=== PATIENT | male | born 1995 | race Caucasian/White ===

== ENCOUNTER 2022-07-11 09:29 | Observation (INO) ==
--- NOTE | 2022-07-08 11:37 | Anesthesiology Consultation ---
Date of Service July 08, 2022 Assessment & Plan (1) Encounter for pre-operative examination: - COVID screening: Per chief growth officer on 07/08/2022: Travel screen negative, no known COVID-19 positive contacts or current COVID-19 related symptoms in past 2 weeks. To surgeon's discretion if preop COVID testing is needed. Chart Review Chart Review: Acceptable Risk for Surgery and Patient NOT seen in Pre Admission Testing History Surgery Operation Date: 07/11/22 10:20 Proposed Procedures p Dismembered Laparoscopic Robotic Assisted Pyeloplasty - Jaspreet Waters MD s Cystoscopy, Right Retrograde Pyelogra, Right Ureteral Stent Placement - Jaspreet Waters MD Height/Weight Height: 5 ft 11 in Weight: 97.522 kg Allergies Allergy/AdvReac Type Severity Reaction Status Date / Time No Known Allergies Allergy Verified 07/08/22 10:00 Medications Home Medications Medication Instructions Recorded Confirmed Last Taken tamsulosin 0.4 mg capsule (Flomax) 0.4 mg PO HS 07/08/22 Unknown Past Medical History Medical History (Updated 07/08/22 @ 11:36 by Elisha Estrella PA-C) History of MRSA infection 2014, axilla and neck UPJ obstruction, congenital Past Family History Family History Other No family history of adverse response to anesthesia Past Surgical History Surgical History H/O colonoscopy (~2013) H/O right knee surgery (~2015) Meniscus repair History of esophagogastroduodenoscopy (EGD) History of wisdom tooth extraction (~2011) S/P surgical removal of pilonidal cyst (~2017) Social History Smoking Status: Never smoker Do You Dip or Chew Tobacco: No Hx Alcohol Use: Yes Alcohol type: beer and wine alcohol intake frequency: holidays/special occasions only Hx Substance Use: No substance use type: does not use Testing Other Testing Abdomen pelvis CT 03/22/22 1. No acute infectious or inflammatory findings are identified in the abdomen or pelvis. 2. There is bilateral hydronephrosis, right greater than left with large extrarenal pelvises. The ureters are normal in caliber with no obstructing stone or lesion identified. This likely represents bilateral UPJ type obstruction. Nonemergent follow-up with urology is recommended. 3. Normal appendix.
[~2022-07-11 09:29] MED LIST: LR 15ML/HR IV SCH; ceFAZolin 2000MG 2,000 MG/15 ML SYR IV SCH
[2022-07-11 10:18] LABS: Appearance Urine Cloudy (Clear); Bacteria Urine Automated Negative (Negative); Bilirubin Urine Negative (Negative); Blood Urine Negative (Negative); Color Urine Yellow; Glucose Urine UA Negative (Negative); Ketones Urine Negative (Negative); Leukocyte Esterase Urine Negative (Negative); Nitrite Urine Negative (Negative); Protein Urine Negative (Negative); RBC Urine Automated 0-4 /hpf (0-4); Specific Gravity Urine 1.022 (1.000-1.030); Urobilinogen Urine Negative (Negative)
[2022-07-11] MEDS ORDERED: PROPOFOL IV EMULSION 10 MG/ML 20 ML VIAL IV ONE (10:19)
[2022-07-11] MEDS ORDERED: ROCURONIUM BROMIDE 10 MG/ML 5 ML VIAL IV ONE ×11 (10:19→14:41)
[2022-07-11] MEDS ORDERED: fentaNYL citrate 100 MCG/2 ML VIAL ONE (10:19)
[2022-07-11] MEDS ORDERED: DEXAMETHASONE SOD INJ 4 MG/ML VIAL ONE (10:19)
[2022-07-11] MEDS ORDERED: LIDOCAINE 2% MPF LOCAL 5 ML VIAL INFIL ONE (10:19)
[2022-07-11] MEDS ORDERED: MIDAZOLAM HCL 1 MG/ML 2ML VIAL ONE (10:19)
[2022-07-11] MEDS ORDERED: ONDANSETRON INJ 2 MG/ML 2 ML VIAL ONE (10:20)
[2022-07-11] MEDS ORDERED: ePHEDrine sulfate 50 MG/ML AMP IV PRN (10:29)
[2022-07-11] MEDS ORDERED: ATROPINE SULFATE 0.1 MG/ML 10ML SYR IV PRN (10:29)
[2022-07-11] MEDS ORDERED: ONDANSETRON INJ 2 MG/ML 2 ML VIAL IV PRN ×2 (10:29→18:08)
[2022-07-11] MEDS ORDERED: HYDROmorphone INJ 2 MG/ML SYR/VIAL IV PRN (10:29)
[2022-07-11] MEDS ORDERED: PROMETHAZINE HCL 12.5 MG in SODIUM CHLORIDE 0.9% 50 ML IV PRN (10:29)
--- NOTE | 2022-07-11 11:35 | History & Physical Report ---
Date of Service July 11, 2022 Assessment & Plan (1) Flank pain: (2) UPJ obstruction, congenital: Plan We reviewed the plan for robot-assisted right pyeloplasty and right ureteral stent placement. We reviewed the risks and anticipated recovery. He expressed understanding and would like to proceed with surgery. History of Present Illness Primary Care Provider: Vesna Drew MD This is a 27-year-old male with history of right-sided hydronephrosis and right flank pain. MAG3 renogram demonstrated obstruction on the right side. We discussed performing a robotic pyeloplasty and he presents to the OR for the surgery. Allergies Allergy/AdvReac Type Severity Reaction Status Date / Time No Known Allergies Allergy Verified 07/11/22 09:49 Home Medications Medication Instructions Recorded Confirmed Type tamsulosin 0.4 mg capsule (Flomax) 0.4 mg PO HS 07/08/22 History Past Med/Surg History Medical History History of MRSA infection 2014, axilla and neck UPJ obstruction, congenital Surgical History H/O colonoscopy (~2013) H/O right knee surgery (~2015) Meniscus repair History of esophagogastroduodenoscopy (EGD) History of wisdom tooth extraction (~2011) S/P surgical removal of pilonidal cyst (~2017) Family History Other No family history of adverse response to anesthesia Social History (Updated 03/27/22 @ 14:06 by Caroline Snell RN) Smoking Status: Never smoker Second Hand Exposure: No; Do You Dip or Chew Tobacco: No; Tobacco Cessation Education Requested by Patient: No Hx Alcohol Use: Yes Alcohol type: beer and wine Alcohol Intake Frequency: 2-3 x/Week Hx Substance Use: No Preferred Language: Palauan Communication Ability: Effective Residential Sales Manager Required: No Beliefs That Will Affect Care: None marital status: Current Living Situation: Spouse current occupational status: student How many Children do You have: 0 Other Information That Helps Us Care for You: No Feels Safe at Home: Yes Safety Concerns: Feels Safe At This Time during the past year weight has: remained stable Assistive Devices: Glasses Review of Systems 14 point review of systems negative except for otherwise indicated. Physical Exam Constitutional: well developed and well nourished; no acute distress Eyes: + anicteric sclerae; pupils not irregular Respiratory: normal respiratory effort; no respiratory distress, does not use accessory muscles and no cough Cardiovascular: well perfused Gastrointestinal (Abdomen): Inspection/Auscultation: abdomen normal to inspection; abdomen not distended Musculoskeletal: Extremities: extremities normal to inspection Skin: normal turgor; no rashes and no lesions Neurologic: moves all extremities and awake Psychiatric: Orientation: alert and oriented x 3 Results & Data ([facility]) Vital Signs (Past 12 Hours) Vital Signs Temp Pulse Resp BP Pulse Ox O2 Del Method 07/11/22 09:52 37 C 110 H 20 159/93 H 98 Room Air
[2022-07-11] MEDS ORDERED: KETOROLAC 30 MG/ML VIAL ONE (11:42)
[2022-07-11] MEDS ORDERED: BUPIVACAINE 0.5 % 5 MG/1 ML MPF 30ML VIAL ONE (11:50)
[2022-07-11] MEDS ORDERED: ePHEDrine sulfate 50 MG/ML SYR ONE (12:53)
[2022-07-11] MEDS ORDERED: HYDROmorphone INJ 2 MG/ML SYR/VIAL ONE (14:09)
[2022-07-11] MEDS ORDERED: SURGICEL ABSORB HEMOSTAT 2IN X 14IN TOP ONE (15:24)
--- NOTE | 2022-07-11 16:36 | Operative Report ---
PG Post Operative Report Pre & Post Diagnosis Operation Date: 07/11/22 11:00 Pre-Op Diagnosis: Congential Ureteropelvic junction Obstruction Post-Op Diagnosis: Congential Ureteropelvic junction Obstruction I identified the patient and participated in the time-out.: Yes Procedure Operation Date: 07/11/22 11:00 Actual Procedures Dismembered Laparoscopic Robotic Assisted Pyeloplasty, Ureteral Stent Placement(Right) - Jaspreet Waters MD Surgeon Jaspreet Waters MD Information Systems Security Developer Tori LOUISE Estimated Blood Loss 25 Findings See Below Crossing vessel appreciated to the lower pole of the right kidney. Ureter was dissected free from underneath, divided and spatulated and reanastomosed to the renal pelvis. Right ureteral stent placed. Specimens None Drains 6 [place]an by 26 cm double-J ureteral stent in the right ureter, Schilling catheter per urethra, #10 MARQUITA drain in the right upper quadrant. Anesthesia Type General Complications none Disposition Accompanied Patient To Recovery: Yes Disposition: Recovery Room Indications This is a 27-year-old male who has previously been evaluated by urology for flank pain, right-sided hydronephrosis and suspicion for right UPJ obstruction. Nuclear medicine study indicated there was obstruction and he presents to the OR today for right-sided pyeloplasty. Description of Procedure The patient was identified in the preoperative holding area and informed consent was confirmed. He was marked on the right side. He was then brought to the operating room where general anesthesia was initiated. He was placed on the operating table in a flank position with the right flank elevated. All pressure points were carefully padded, and he was secured to the table using tape. His abdomen was prepped and draped in the usual sterile fashion a timeout was then performed. Robotic port sites were marked in a line approximately 7 cm right of midline. The uppermost of these ports was approximately 2 fingerbreadths below the costal margin, and the lower ports were 7 cm apart. An incision was made over the right upper quadrant port site. Using a Veress needle, access to the peritoneum was obtained, confirming good position with a drop test, negative aspiration and low initial insufflation pressure. The camera was inserted and confirmed that there was no injury to intra-abdominal contents. There was some adhesions of the upper colon to the liver and in the right lower quadrant to the abdominal wall. The remaining 8 mm robotic ports were placed under direct visualization and a 12 mm computer lab assistant port was placed just cephalad of the umbilicus. The robot was then docked. The ascending colon was reflected along the white line of Toldt and the adhesions near the liver were divided sharply. This allowed exposure to the kidney and the likely location of the hilum. The duodenum was medial and not encountered. The retroperitoneum was entered and the ureter was identified. Holding the ureter anterior leaving the gonadal vessels in place, dissection was carried upward toward the kidney. At the lower pole I encountered a crossing artery and vein, likely the source of his UPJ obstruction. The ureter and renal pelvis tissue were dissected free to gain mobility. Once there were sufficiently mobile, a stay suture was attached to the proximal ureter. The ureter was then divided using Mullins scissors and spatulated laterally. Before the ureter was completely detached from the renal pelvis, two of the anastomotic 4-0 Vicryl sutures were placed on the ureter side. The ureter and the renal pelvis were then detached. The renal pelvis was fed underneath the crossing vessels and then brought back over the top. The renal pelvis was spatulated to give a wide opening The ureter was then reanastomosed to the renal pelvis using interrupted 4-0 Vicryl sutures. Before the anastomosis was complete, a 6 Zimbabwean by 26 cm d ouble-J ureteral stent was then fed antegrade over a 0.038 inch zip wire, through the computer lab assistant port, down the ureter until it was at the level of the bladder. The wire was then removed and there was good curl at the level of the kidney. The proximal curl was fed into the renal pelvis and the anastomosis was then completed. Final inspection confirmed excellent hemostasis. Surgicel was applied to the hilar area and the resection bed under the ureter. #10 MARQUITA drain was fed through the top robotic port with the base near the anastomotic site. All instruments were removed and the robot was de-docked. 12 mm port was closed using 0 Vicryl interrupted suture in the fascia. The drain was secured to the skin using 4-0 nylon suture as a drain stitch. The incisions were then anesthetized using half percent Marcaine and then closed using 4-0 Monocryl suture followed by layer of Dermabond. An x-ray was performed at the conclusion of the case to confirm good position of the stent. At this point the patient was awakened from general anesthesia and was brought to the recovery room in stable condition. All sponge and instrument counts were correct at the end the case. Of note, Tori Flowers assisted with positioning, exposure, retraction, passing in sutures and closing throughout the case. I attest to the content of the Intraoperative Record and any orders documented therein. Any exceptions are noted below.
[2022-07-11] MEDS: fentaNYL citrate 100 MCG/2 ML VIAL IV PRN ×3 (16:40→17:08)
--- NOTE | 2022-07-11 16:53 | Fluoroscopy Report ---
FL retrograde includes kub CLINICAL HISTORY: Right-sided stent placement. COMPARISON STUDY: None. FLUOROSCOPY TIME: 1 second. FINDINGS: 2 fluoroscopic spot images of the abdomen and pelvis demonstrate a right ureteral stent whi ch appears in good position. IMPRESSION: Fluoroscopic assistance provided for right ureteral stent placement. ACT 112: Negative or not required by law. Electronically signed by: Ye Gordon M.D. 07/11/2022 4:52 PM
--- NOTE | 2022-07-11 17:27 | Anesthesiology Progress Note ---
Date of Service July 11, 2022 Anesthesia Post Procedure Vital Signs Vital Signs: Temp Pulse Pulse Resp BP Pulse Ox O2 Del Method 07/11/22 16:50 71 12 151/89 H 100 Room Air 07/11/22 17:20 36.8 C 97 H 12 147/79 H 98 Nasal Cannula 07/11/22 17:10 96 H 14 152/69 H 98 Nasal Cannula 07/11/22 17:00 90 12 147/82 H 95 Nasal Cannula 07/11/22 16:40 77 16 143/81 H 100 Oxymask 07/11/22 16:33 36.1 C L 80 18 143/79 H 100 Oxymask 07/11/22 09:52 37 C 110 H 20 159/93 H 98 Room Air O2 Flow Rate 07/11/22 16:50 07/11/22 17:20 2 07/11/22 17:10 2 07/11/22 17:00 2 07/11/22 16:40 3 07/11/22 16:33 6 07/11/22 09:52 Pain Intensity Right Flank: Pain Intensity: 5 Right Groin: Pain Intensity: 5 Abdomen: Pain Intensity: 3 Transfer of Care Handoff Completed per policy Notes Mental Status: alert / awake / arousable Patient Amnestic to Procedure: Yes Nausea / Vomiting: adequately controlled Pain: adequately controlled Airway Patency, RR, SpO2: stable & adequate BP & HR: stable & adequate Hydration State: stable & adequate Anesthetic Complications: no major complications apparent
[2022-07-11] MEDS ORDERED: oxyCODONE HCL IR 5 MG TAB (IMMEDIATE RELEASE) PO PRN (18:08)
[2022-07-11] MEDS ORDERED: MoRPHine SULFATE 4 MG/ML 1 ML CARP\\VIAL IV PRN (18:08)
[2022-07-11] MEDS ORDERED: MoRPHine SULFATE 2 MG/ML CARP IV PRN (18:08)
[2022-07-11] MEDS ORDERED: POLYETHYLENE (MIRALAX) 17 GM PACK PO PRN (18:08)
[2022-07-11] MEDS: LACTATED RINGER'S 1,000 ML IV SCH (18:19)
[2022-07-11] MEDS: IBUPROFEN 200 MG TAB PO SCH ×2 (18:24→23:24)
[2022-07-11] MEDS: ACETAMINOPHEN 325 MG TAB PO SCH ×2 (18:24→23:24)
[2022-07-11] MEDS: ceFAZolin 2000MG 2,000 MG/15 ML SYR IV SCH (19:53)
[2022-07-11] MEDS: HEPARIN SOD 5,000 UNIT/0.5 ML VIAL SQ SCH (19:54)
[2022-07-11] MEDS: DOCUSATE SODIUM 100 MG CAP PO SCH (19:55)
[2022-07-11] MEDS ORDERED: TAMSULOSIN HCL 0.4 MG CAP PO SCH (21:00)
[2022-07-12] MEDS: oxyCODONE HCL IR 5 MG TAB (IMMEDIATE RELEASE) PO PRN ×2 (02:15→08:25)
[2022-07-12] MEDS: ceFAZolin 2000MG 2,000 MG/15 ML SYR IV SCH (03:24)
[2022-07-12] MEDS: LACTATED RINGER'S 1,000 ML IV SCH (03:24)
[2022-07-12] MEDS: ACETAMINOPHEN 325 MG TAB PO SCH ×2 (05:47→11:24)
[2022-07-12] MEDS: IBUPROFEN 200 MG TAB PO SCH ×2 (05:47→11:24)
--- NOTE | 2022-07-12 07:56 | Urology Progress Note ---
Date of Service July 12, 2022 Assessment & Plan (1) UPJ obstruction, congenital: Plan: POD #1 s/p Dismembered Laparoscopic Robotic Assisted Pyeloplasty,Right Ureteral Stent Placement with Dr. Waters. - Doing well, progressing as expected. - He has some incisional discomfort and expected bother from right ureteral stent, currently well managed. - Schilling patent and draining clear yellow urine with small amount of maroon sediment. - Discontinue Schilling this morning - monitor for void. - MARQUITA drain with minimal output overnight - plan to DC drain today. - Tolerating regular diet. - Incisions appropriate. - Encouraged out of bed ambulation this morning. - Anticipate home later this morning if he continues to progress as expected. - Expected clinical course reviewed, all questions answered. Admission and Anticipated Discharge Date Admission Date: July 11, 2022 Supervising Physician Co-Signing Physician Notes I have discussed Mr. Neri with DANI Shepherd and agree with the above documentation. He is doing well, postop day #1 from robotic pyeloplasty. He is tolerating a diet and pain is well controlled. He is ambulating. Drain and Schilling were removed. We will plan for discharge home today. Subjective Patient seen and examined at bedside this morning. No acute issues overnight. He reports incisional and right flank discomfort around 1-2 am, relieved with IV and PO pain medication. Currently feeling comfortable. Reports intermittent right flank discomfort. Tolerating PO diet. No nausea or vomiting. +Flatus. No fever or chills. MARQUITA drain with minimal output overnight. Schilling intact with clear yellow urine with some maroon sediment in tubing. He has not been out of bed yet. Review of Systems Constitutional: as per Subjective / HPI Gastrointestinal: as per Subjective / HPI Genitourinary: + as per Subjective / HPI Physical Exam 2 Constitutional: well developed and well nourished; no acute distress Respiratory: normal respiratory effort; no respiratory distress and no labored breathing Cardiovascular: Extremities: no pedal edema Gastrointestinal (Abdomen): Inspection/Auscultation: abdomen normal to inspection; abdomen not distended Percussion/Palpation: + abdomen tender (some tenderness near incisions) and abdomen soft; no guarding Musculoskeletal: Head/Neck/Chest: normocephalic and head atraumatic Skin: Surgical incisions appear healthy and C/D/I with dermabond. MARQUITA drain with minimal serosanguinous drainage. Neurologic: moves all extremities and awake Psychiatric: Orientation: alert and oriented x 3 Genitourinary: Schilling catheter patent draining clear yellow urine with maroon sediment Results & Data ([facility]) Vital Signs (Past 12 Hours) Vital Signs Temp Pulse Resp BP Pulse Ox O2 Del Method 07/12/22 07:45 36.7 C 99 H 16 142/77 H 96 Room Air 07/12/22 03:07 37.1 C 100 H 20 124/74 94 Room Air 07/11/22 22:50 36.8 C 118 H 18 127/74 96 Room Air PG Care Time/CCT Total # of Minutes Spent Total Time Spent with Patient: Total time spent is greater than 50% in coordination of care (as documented) at patient's floor/unit and/or counseling patient: Coding Level of Care Code None Diagnoses UPJ obstruction, congenital Q62.39
[2022-07-12 08:14] LABS: Basophils # (auto) 0.02 K/uL (0-0.2); Basophils % (auto) 0.2 %; Hematocrit (blood only) 35.3 % (40.1-51.0); Hemoglobin 12.4 g/dl (14.0-18.0); Immature Granulocytes # (auto) 0.03 K/uL (0.00-0.02); Immature Granulocytes % (auto) 0.3 %; Lymphocytes # (auto) 2.21 K/uL (1.2-3.4); Lymphocytes % (auto) 19.9 %; Mean Corpuscular Hemoglobin 32.6 pg (25.0-34.0); Mean Corpuscular Hgb Conc 35.1 g/dL (32.0-36.0); Mean Corpuscular Volume 92.9 fL (80.0-100.0); Mean Platelet Volume 9.8 fL (9.4-12.4); Monocytes # (auto) 0.89 K/uL (0.24-0.82); Neutrophils # (auto) 7.94 K/uL (1.4-6.5); Neutrophils % (auto) 71.6 %; Platelet Count 253 K/uL (130-400); RDW Coefficient of Variation 11.9 % (11.5-14.5); RDW Standard Deviation 40.3 fL (36.4-46.3); White Blood Count 11.09 K/ul (4.8-10.8)
[2022-07-12] MEDS: DOCUSATE SODIUM 100 MG CAP PO SCH (08:21)
[2022-07-12] MEDS: HEPARIN SOD 5,000 UNIT/0.5 ML VIAL SQ SCH (08:21)
[2022-07-12 09:36] LABS: BUN Creatinine Ratio 18.9 (10-20); Calcium 8.8 mg/dl (8.5-10.1); Creatinine Clr Calc Pharmacy 148.4 ml/min; Est GFR (African American) 128.4 ml/min; Est GFR (Non-African American) 110.8 ml/min; Potassium 3.8 mmol/L (3.5-5.1)
--- NOTE | 2022-07-12 11:42 | Discharge Summary ---
Date of Service July 12, 2022 Admission HPI Per Admitting Provider This is a 27-year-old male with history of right-sided hydronephrosis and right flank pain. MAG3 renogram demonstrated obstruction on the right side. We discussed performing a robotic pyeloplasty and he presents to the OR for the surgery. Admission Exam Per Admitting Provider Constitutional well developed and well nourished; no acute distress Eyes + anicteric sclerae; pupils not irregular Respiratory normal respiratory effort; no respiratory distress, does not use accessory muscles and no cough Cardiovascular well perfused Gastrointestinal (Abdomen) Inspection/Auscultation: abdomen normal to inspection; abdomen not distended Musculoskeletal Extremities: extremities normal to inspection Skin normal turgor; no rashes and no lesions Neurologic moves all extremities and awake Psychiatric Orientation: alert and oriented x 3 Principal Diagnosis Right UPJ obstruction Discharge Exam Well-appearing, NAD Gastrointestinal (Abdomen) Abdomen soft, appropriately tender. MARQUITA drain in the right upper quadrant with serosanguineous drainage, minimal output, removed at the bedside. Incisions are well approximated with Dermabond. Tegaderm and gauze over the drain site. Discharge Data Allergies Allergy/AdvReac Type Severity Reaction Status Date / Time No Known Allergies Allergy Verified 07/11/22 09:49 Procedures Performed Operation Date: 07/11/22 11:00 Actual Procedures p Dismembered Laparoscopic Robotic Assisted Pyeloplasty, Right Ureteral Stent Placement(Right) - Jaspreet Waters MD Ordered Studies 07/11/22 11:00 FL retrograde includes kub Routine Hospital Course (1) UPJ obstruction, congenital: Patient underwent robot-assisted right pyeloplasty on 07/11/2022. Postoper atively he was admitted in good condition. On postop day 1 he was ambulating, tolerating a diet and pain was well controlled. He was discharged home in good condition. Total Time Total Time Spent Total Time Spent (In Minutes): 15 Discharge Plan Discharge Items Patient Disposition: Home - Self-Care Reason For Visit: UPJ Obstruction, Congential Discharge Diagnosis: Right UPJ obstruction Activity: Per Instructions section Non-emergency contact: Urologist Call non-emergency contact if: your pain is not controlled and your temperature is above 101 Follow-up/Referrals: Vesna Drew MD [Primary Care Provider] - Diet: Regular Addtl Attending Provider Instructions: The surgery you had was: Robot-assisted right pyeloplasty, right ureteral stent placement Please take all medications as prescribed and keep all follow-ups as scheduled. Please call our office at [phone] with any questions, concerns or need to reschedule appointments for any reason. We are happy to assist you Medications: Please take all medications as prescribed. For pain control, you can take tylenol every 6 hours. You can also take ibuprofen every 6 hours. You can also continue to use Flomax/tamsulosin for pain. If you have been prescribed a narcotic pain medication, please take this according to the instructions on the label. You have been prescribed a single dose of antibiotics (Bactrim) to be taken 1 hour prior to your appointment for li catheter removal. Activity: We recommend having someone with you for the first few days after surgery to help care for you. For the first 2 weeks after surgery, we would like you to get up and walk around your house. However, we recommend limit physical activity that would increase your heart rate. This will allow your body to rest and heal. Take naps if you feel tired. Don't lift anything heavier than 10 pounds, mow the law or ride a bicycle until your follow-up appointment. Please avoid long car rides. Home Care: Unless directed otherwise, drink 6 to 8 glasses of water a day (enough to keep your urine light colored). This will also help keep a healthy flow of urine. We recommend using a stool softener such as colace or miralax for the first two weeks to avoid constipation. You may have some persistent oozing from the upper incision. You can use gauze to collect this and it should decrease over time. Ureteral stent: You have a ureteral stent in place. While this is in a position, you may have some blood in the urine. As long as you can still urinate, blood is okay. You may have some flank pain when you urinate and it may feel like you have urinary frequency. Follow-up We will plan to see you in 1 to 2 weeks for wound check and make sure everything is going well. We will have you come back in 6 weeks for stent removal. Call [facility] at [phone] right away if you have any of the following: Chest pain or trouble breathing (call 911 or go to the hospital) Fever of 101F or higher, uncontrolled vomiting Heavy bleeding, clots, or bright red blood from the catheter Catheter that falls out or stops draining Foul-smelling discharge from your catheter Redness, swelling, warmth, or increased pain at your incision site Drainage, pus, or bleeding from your incision Pending Studies at Discharge: No Stand-Alone Forms: My [facility], Smoking Cessation Medications and DC Order Prescriptions: New oxycodone 5 mg capsule 5 mg PO DAILY Qty: 10 0RF Rx Instructions: For acute post-surgical pain not managed with Tylenol/ibuprofen tamsulosin 0.4 mg capsule 0.4 mg PO DAILY Qty: 30 1RF Continued tamsulosin [Flomax] 0.4 mg capsule 0.4 mg PO HS Discharge Orders: Discharge Order (Routine); Ordered 07/12/22 Ordered By: Jaspreet Waters Admission Data Admit Date/Time: 07/11/22 15:51 Attending Provider: Jaspreet Waters Admit Provider: Jaspreet Waters Primary Care Provider: Vesna Drew Coding Level of Care Code D/C DAY MANAGEMENT <30 MINS Diagnoses UPJ obstruction, congenital Q62.39
== END 2022-07-12 15:07 | disposition home or self-care (01) ==
LOC: ASU 09:29 → 3E 15:51 → INTOOBSV 15:51